=== PATIENT | female | born 1940 | race Asian ===

== ENCOUNTER → 2017-06-27 | Outpatient (CLI) | payer MEDICARE, OTHER ==
[~2017-06-27] MED LIST: AMLO-512 PO; VALS320T2 PO
== END | disposition home or self-care (01) ==
LOC: RADPV 14:25
PROVIDERS: ATTEND Internal Medicine Geriatric Medicine
DX: J44.9 Chronic obstructive pulmonary disease, unspecified (principal); I70.0 Atherosclerosis of aorta
CPT/HCPCS: 71046

== ENCOUNTER → 2017-07-24 | Outpatient (CLI) | payer MEDICARE, MEDICAID ==
[~2017-07-24] VITALS: Ht 157.5 cm; Wt 49.0 kg
[~2017-07-24] MED LIST changes: +ALEN70TA48 PO; +CALC-1038 PO; +DSS100 PO; +VALS160T2 PO
[2017-07-24 11:29] VITALS: BP 163/84
== END | disposition home or self-care (01) ==
LOC: SRCNTR 11:03
PROVIDERS: ATTEND Internal Medicine Critical Care Medicine
DX: J98.4 Other disorders of lung (principal); I10 Essential (primary) hypertension
CPT/HCPCS: G0463

== ENCOUNTER → 2017-08-09 | Outpatient (CLI) | payer MEDICARE, MEDICAID ==
[~2017-08-09] MED LIST changes: -VALS320T2 PO
== END | disposition home or self-care (01) ==
LOC: RADMN 11:14
PROVIDERS: ATTEND Internal Medicine Critical Care Medicine
DX: J47.9 Bronchiectasis, uncomplicated (principal); I25.10 Atherosclerotic heart disease of native coronary artery without angina pectoris; I70.0 Atherosclerosis of aorta; R91.8 Other nonspecific abnormal finding of lung field
CPT/HCPCS: 71250

== ENCOUNTER → 2018-07-02 | Outpatient (CLI) | payer MEDICARE, OTHER ==
[~2018-07-02] MED LIST changes: +ALEN70TA10 PO; -ALEN70TA48 PO
== END | disposition home or self-care (01) ==
LOC: RADPV 08:41
PROVIDERS: ATTEND Internal Medicine Geriatric Medicine
DX: M17.0 Bilateral primary osteoarthritis of knee (principal); M19.012 Primary osteoarthritis, left shoulder; J84.10 Pulmonary fibrosis, unspecified

== ENCOUNTER 2020-07-04 16:22 | Emergency (ER) | payer MEDICARE, OTHER ==
[~2020-07-04] VITALS: Ht 152.4 cm; Wt 43.2 kg
[~2020-07-04 16:22] MED LIST changes: -ALEN70TA10 PO; +ALEN70TA65 PO; +AMLO-258 PO; -AMLO-512 PO
[2020-07-04 19:29] VITALS: BP 132/75
== END 2020-07-04 19:31 | disposition home or self-care (01) ==
LOC: EMS 16:24
DX: M25.552 Pain in left hip (principal); I10 Essential (primary) hypertension; Z79.899 Other long term (current) drug therapy
CPT/HCPCS: 73521; 99283

== ENCOUNTER → 2021-09-16 | Outpatient (CLI) | payer MEDICARE, OTHER | END | disposition home or self-care (01) | LOC: RADPV 08:45 | PROVIDERS: ATTEND Internal Medicine Geriatric Medicine | DX: J47.9 Bronchiectasis, uncomplicated (principal); J84.10 Pulmonary fibrosis, unspecified; J98.4 Other disorders of lung; K76.89 Other specified diseases of liver; M47.814 Spondylosis without myelopathy or radiculopathy, thoracic region; R10.9 Unspecified abdominal pain | CPT/HCPCS: 71250; 76700 ==

== ENCOUNTER → 2021-09-17 | Outpatient (CLI) | payer MEDICARE, OTHER ==
[~2021-09-17] VITALS: Ht 160 cm; Wt 47.4 kg
[2021-09-17 10:36] VITALS: BP 169/79
== END | disposition home or self-care (01) ==
LOC: SRCNTR 10:11
PROVIDERS: ATTEND Internal Medicine Critical Care Medicine
DX: I12.9 Hypertensive chronic kidney disease with stage 1 through stage 4 chronic kidney disease, or unspecified chronic kidney disease (principal); N18.9 Chronic kidney disease, unspecified; M75.100 Unspecified rotator cuff tear or rupture of unspecified shoulder, not specified as traumatic; J47.9 Bronchiectasis, uncomplicated; M77.9 Enthesopathy, unspecified; N81.4 Uterovaginal prolapse, unspecified
CPT/HCPCS: G0463

== ENCOUNTER → 2024-05-21 | Outpatient (CLI) | payer MEDICARE, OTHER ==
[~2024-05-21] VITALS: Ht 160 cm; Wt 47.0 kg
[2024-05-21 12:38] VITALS: BP 126/70; PULSE 65; RESP 19; TEMP 98.2; O2SAT 88
== END | disposition home or self-care (01) ==
LOC: SRCNTR 11:57
PROVIDERS: ATTEND Internal Medicine Pulmonary Disease
DX: I12.9 Hypertensive chronic kidney disease with stage 1 through stage 4 chronic kidney disease, or unspecified chronic kidney disease (principal); N18.9 Chronic kidney disease, unspecified; J47.9 Bronchiectasis, uncomplicated; Z79.899 Other long term (current) drug therapy; Z80.3 Family history of malignant neoplasm of breast; Z86.11 Personal history of tuberculosis
CPT/HCPCS: G0463; Z7500